=== PATIENT | female | born 1980 | race Caucasian/White ===

== ENCOUNTER → 2017-08-06 | Outpatient (CLI) | payer BC, OTHER ==
[~2017-08-06] MED LIST: ALBU90OI61 INH; AZIT250 PO; BENZ100A PO; HYDACE5 PO; Omeprazole20 M1 PO; PROM6.25SY PO; Prednisone20 MG PO
== END ==
LOC: OLS 17:02
DX: N89.8 Other specified noninflammatory disorders of vagina (principal)
CPT/HCPCS: 87070; 87205

== ENCOUNTER → 2018-10-26 | Outpatient (CLI) | payer BC ==
[2018-10-28 16:06] LABS: HPV 16 Negative (Negative); HPV 18 Negative (Negative); HPV OTHER HR TYPES Negative (Negative)
== END | disposition home or self-care (01) ==
LOC: LAB 17:01 → LAB SHORT 17:01
PROVIDERS: Nurse Practitioner Women's Health
DX: Z12.4 Encounter for screening for malignant neoplasm of cervix (principal); Z91.89 Other specified personal risk factors, not elsewhere classified
CPT/HCPCS: 87624; G0123

== ENCOUNTER → 2018-11-05 | Outpatient (CLI) | payer BC ==
[2018-11-05 09:37] LABS: Source, Urine Clean Catch
[2018-11-05 09:49] LABS: Appearance, Urine Clear (Clear); Bilirubin, Urine Neg (Neg); Blood, Urine Neg (Neg); Color, Urine Yellow (P-Yellow); Glucose Qualitative, Urine Neg (Neg); Ketones, Urine Neg (Neg); Leukocyte Esterase, Urine Neg (Neg); Nitrite, Urine Neg (Neg); Protein, Urine Neg (Neg); Urobilinogen, Urine NORM (Normal)
== END ==
LOC: LAB 09:36 → LAB SHORT 09:36
PROVIDERS: Nurse Practitioner Women's Health
DX: R30.0 Dysuria (principal)
CPT/HCPCS: 81003

== ENCOUNTER → 2018-11-10 | Outpatient (CLI) | payer BC | END | disposition home or self-care (01) | LOC: LAB 15:43 → LAB SHORT 15:43 | DX: J02.9 Acute pharyngitis, unspecified (principal) | CPT/HCPCS: 87070; 87147 ==

== ENCOUNTER → 2020-04-11 | Outpatient (CLI) | payer BC ==
[~2020-04-11] MED LIST changes: +DOCU100 PO; +Estradiol2 MG PO; +IBUP800 PO; +LEVONORGESTREL 1.5 MG PO; +Milk Of Ma400 MG/5 M PO; +PROM25 PO; +Percocet 5-3251 EACH PO; +SENN187 PO; +SIME80CH PO
[2020-04-11 14:16] LABS: Source, Urine Clean Catch
[2020-04-11 15:02] LABS: Bilirubin, Urine Neg (Neg); Blood, Urine Neg (Neg); Glucose Qualitative, Urine Neg (Neg); Ketones, Urine Neg (Neg); Leukocyte Esterase, Urine Neg (Neg); Nitrite, Urine Neg (Neg); Protein, Urine Neg (Neg); Specific Gravity, Urine 1.025 (1.003-1.022); Urobilinogen, Urine NORM (Normal)
[2020-04-11 15:19] LABS: Appearance, Urine Clear (Clear); Color, Urine Yellow (P-Yellow)
== END | disposition home or self-care (01) ==
LOC: LAB SHORT 14:14 → OLS 14:14
PROVIDERS: Nurse Practitioner Women's Health
DX: N32.81 Overactive bladder (principal)
CPT/HCPCS: 81003; 87086

== ENCOUNTER 2020-10-05 07:37 | Day surgery (SDC) | payer BC ==
[~2020-10-05] VITALS: Ht 149.9 cm; Wt 83.4 kg
--- NOTE | 2020-10-05 08:35 | NUR ---
10/05/20 0835 RUKHSANA TSANG PT TO PRE OP, IV TO LEFT HAND. VSS ON ROOM AIR. ENGAGED IN PRE OP TEACHING AND ALL QUESTIONS ASKED AND ANSWERED.
--- NOTE | 2020-10-05 08:52 | NUR ---
10/05/20 0852 Bhupinder Morrow PT INTO OR AT 0840. SX CANCELED D/T NOT HAVING NEEDED EQUIPMENT. PT OUT OF OR AT 0848 & TRANSFERED TO STEP DOWN. PT STATES AN UNDERSTANDING.
== END 2020-10-05 09:00 | disposition home or self-care (01) ==
LOC: ORSCSDS 07:37
DX: M21.612 Bunion of left foot (principal); Z53.9 Procedure and treatment not carried out, unspecified reason
CPT/HCPCS: J0171; J0690; J1100; J2250; J2405; J2704; J3010; J7120

== ENCOUNTER 2020-10-12 11:38 | Day surgery (SDC) | payer BC ==
[~2020-10-12] VITALS: Ht 149.9 cm; Wt 83.2 kg
--- NOTE | 2020-10-12 13:50 | NUR ---
10/12/20 1350 Magnolia Medrano 0.15ML OF EPI 1MG/ML ADDED TO 30ML OF BUPIVICAINE 0.5% FOR A MIXTURE OF BUPIVICAINE 0.5% WITH EPI 1:200,000.
--- NOTE | 2020-10-12 15:34 | NUR ---
10/12/20 1534 Lynnette Larry PT HAVING PAIN IN OPERATIVE LEFT FOOT, 04/14. SITTING IN CHAIR, VITAL SIGNS BP 111/65, OX AT 100% HR 89. PT SITTING IN CHAIR, NOT INVISIBLE PAIN.
== END 2020-10-12 16:35 | disposition home or self-care (01) ==
LOC: ORSCSDS 11:38
PROVIDERS: Podiatrist Foot & Ankle Surgery
PROC: 0QSR04Z Reposition Left Toe Phalanx with Internal Fixation Device, Open Approach (ICD-10-PCS; principal; 2020-10-12 13:15)
PROC: 0SGJ04Z Fusion of Left Tarsal Joint with Internal Fixation Device, Open Approach (ICD-10-PCS; principal; 2020-10-12 13:15)
DX: M21.612 Bunion of left foot (principal); K21.9 Gastro-esophageal reflux disease without esophagitis; E66.01 Morbid (severe) obesity due to excess calories; Z68.37 Body mass index [BMI] 37.0-37.9, adult
CPT/HCPCS: A9270; C1713; C1776; J0171; J0690; J1100; J2250; J2405; J2704; J3010; J7120

== ENCOUNTER → 2021-07-27 | Outpatient (CLI) | payer BC ==
[2021-07-27 11:46] LABS: Hematocrit 46.3 % (33.0-51.0); Hemoglobin 15.4 g/dL (11.5-16.0); Mean Corpuscular HGB 29.8 pg (26.0-34.0); Mean Corpuscular HGB Conc 33.3 g/dL (31.5-36.5); Mean Corpuscular Volume 90 fL (80-100); Mean Platelet Volume 11.4 fL (9.1-12.4); Platelet Count 295 K/mm3 (150-400); RDW Coefficient Variation 12.2 % (11.7-14.2); Red Blood Cell Count 5.16 M/mm3 (3.80-5.20); White Blood Cell Count 4.95 K/mm3 (4.00-11.30)
[2021-07-27 13:34] LABS: Alanine Aminotransfer (ALT/SGP 38 U/L (12-78); Albumin, Blood 3.6 g/dL (3.4-5.0); Albumin/Globulin Ratio 1.1 (0.8-1.8); Alk Phos 178 U/L (50-136); Anion Gap 5 mmol/L (6-16); Aspartate Aminotrans (AST/SGOT 24 U/L (12-37); Bilirubin, Total 0.3 mg/dL (0.1-1.0); Blood Urea Nitrogen 8 mg/dL (8-24); Bun/Creatinine Ratio 12.4 (12.0-20.0); CHOL/HDL RATIO 6.4; CO2, Blood 26 mmol/L (21-32); Calcium, Blood 9.1 mg/dL (8.5-10.1); Chloride, Blood 109 mmol/L (98-108); Cholesterol 211 mg/dL (50-200); Creatinine, Blood 0.65 mg/dL (0.40-1.00); Ferritin, Serum 101 ng/mL (8-252); Globulin, Blood 3.4 g/dL (2.2-4.0); Glomerular Filtration Rate >60 (60-); Glucose, Blood 97 mg/dL (70-99); HDL Cholesterol 33 mg/dL (>39); Low Density Lipoprotein Chol 131 mg/dL (0-110); Potassium, Blood 4.4 mmol/L (3.5-5.5); Sodium, Blood 140 mmol/L (136-145); Triglycerides 233 mg/dL (30-140); Very Low Density Lipoprot Chol 46 mg/dL (6-28)
[2021-07-27 13:51] LABS: Triiodothyronine, Free 2.55 pg/mL (2.18-3.98)
[2021-07-28 08:08] LABS: ESTRADIOL <5.0 pg/mL (.)
[2021-07-29 02:09] LABS: HIV AB/P24 AG SCREEN Non Reactive (Non Reactive)
[2021-07-29 14:09] LABS: FREE TESTOSTERONE(DIRECT) 3.2 pg/mL (0.0-4.2); SEX HORM BINDING GLOB, SERUM 28.6 nmol/L (24.6-122.0); TESTOSTERONE, SERUM <3 ng/dL (8-60)
== END ==
LOC: LAB SHORT 10:39 → LAB FUT 07-19 14:30 → EDSTATUS 07-19 14:30
PROVIDERS: Nurse Practitioner
DX: Z00.00 Encounter for general adult medical examination without abnormal findings (principal); N95.1 Menopausal and female climacteric states; Z13.228 Encounter for screening for other metabolic disorders; Z13.29 Encounter for screening for other suspected endocrine disorder
CPT/HCPCS: 36415; 80053; 80061; 82306; 82533; 82607; 82728; 83001; 83525; 84439; 84443; 84481; 85027; 87389

== ENCOUNTER → 2022-04-07 | Outpatient (CLI) | payer BC | END | disposition home or self-care (01) | LOC: LAB 15:45 → LAB SHORT 15:45 | DX: J02.9 Acute pharyngitis, unspecified (principal) | CPT/HCPCS: 87081 ==

== ENCOUNTER → 2022-07-16 | Outpatient (CLI) | payer BC ==
[2022-07-16 20:48] LABS: Thyroid Stimulating Hormone 2.69 uIU/mL (0.360-4.800)
== END | disposition home or self-care (01) ==
LOC: LAB SHORT 18:01
PROVIDERS: Physician Assistant
DX: R20.2 Paresthesia of skin (principal)
CPT/HCPCS: 82607; 82746; 83036; 84443

== ENCOUNTER 2022-08-11 16:47 | Emergency (ER) | payer BC ==
[~2022-08-11] VITALS: Ht 152.4 cm; Wt 86.2 kg
[2022-08-11 17:16] LABS: BASOPHILS ABSOLUTE AUTO 0.15 K/mm3 (0.00-0.23); BASOPHILS PERCENT AUTO 1 % (0-2); EOSINOPHILS ABSOLUTE AUTO 1.72 K/mm3 (0.00-0.68); EOSINOPHILS PERCENT AUTO 11 % (0-6); Hematocrit 45.8 % (33.0-51.0); Hemoglobin 15.3 g/dL (11.5-16.0); IMMATURE GRAN ABSOLUTE AUTO 0.08 K/mm3 (0.00-0.10); IMMATURE GRAN PERCENT AUTO 1 % (0-1); LYMPHOCYTES ABSOLUTE AUTO 3.08 K/mm3 (0.84-5.20); LYMPHOCYTES PERCENT AUTO 20 % (21-46); MONOCYTES ABSOLUTE AUTO 1.11 K/mm3 (0.16-1.47); MONOCYTES PERCENT AUTO 7 % (4-13); Mean Corpuscular HGB 30.2 pg (26.0-34.0); Mean Corpuscular HGB Conc 33.4 g/dL (31.5-36.5); Mean Corpuscular Volume 90 fL (80-100); Mean Platelet Volume 10.2 fL (9.1-12.4); NEUTROPHILS ABSOLUTE AUTO 8.98 K/mm3 (1.96-9.15); NEUTROPHILS PERCENT AUTO 59 % (41-73); Platelet Count 329 K/mm3 (150-400); RDW Coefficient Variation 13.1 % (11.7-14.2); RDW Standard Deviation 43.2 fL (35.1-46.3); Red Blood Cell Count 5.07 M/mm3 (3.80-5.20); White Blood Cell Count 15.12 K/mm3 (4.00-11.30)
[2022-08-11 17:36] LABS: Albumin, Blood 3.4 g/dL (3.4-5.0); Albumin/Globulin Ratio 0.9 (0.8-1.8); Bilirubin, Total 0.3 mg/dL (0.1-1.0); Bun/Creatinine Ratio 10.4 (12.0-20.0); Calcium, Blood 8.9 mg/dL (8.5-10.1); Creatinine, Blood 0.67 mg/dL (0.40-1.00); Globulin, Blood 3.6 g/dL (2.2-4.0); Potassium, Blood 3.9 mmol/L (3.5-5.5)
[2022-08-11] MEDS ORDERED: DOXY100 PO (19:40)
[2022-08-11] MEDS ORDERED: METPRE4DP PO (19:40)
[2022-08-11 20:32] LABS: Influenza A, PCR NEGATIVE (NEGATIVE); Influenza B, PCR NEGATIVE (NEGATIVE); Resp Syncytial Virus, PCR NEGATIVE (NEGATIVE); SARS-Cov-2 (COVID-19) PCR, MMC NEGATIVE (NEGATIVE)
== END 2022-08-11 20:00 | disposition home or self-care (01) ==
LOC: ER 16:47
PROVIDERS: Emergency Medicine; Physician Assistant
DX: J98.01 Acute bronchospasm (principal); J98.8 Other specified respiratory disorders; Z79.899 Other long term (current) drug therapy
CPT/HCPCS: 0241U; 36415; 71046; 80053; 85025; A9270; J7512

== ENCOUNTER → 2023-10-22 | Outpatient (CLI) | payer OTHER ==
[~2023-10-22] MED LIST changes: +DOXY100 PO; +METPRE4DP PO; +OMEP20ER; +PROGESTERO50 MG/1 ML
[2023-10-27 14:07] LABS: CALPROTECTIN,FECAL 66 ug/g (<=49)
== END | disposition home or self-care (01) ==
LOC: LAB SHORT 18:00 → LAB 18:00
PROVIDERS: Physician Assistant Medical
DX: K59.00 Constipation, unspecified (principal)
CPT/HCPCS: 83993

== ENCOUNTER → 2023-10-28 | Outpatient (CLI) | payer BC, OTHER | END | disposition home or self-care (01) | LOC: LAB SHORT 15:41 → LAB 15:41 | DX: N39.0 Urinary tract infection, site not specified (principal) ==

== ENCOUNTER 2023-11-04 09:47 | Day surgery (SDC) | payer BC, OTHER ==
[~2023-11-04] VITALS: Ht 152.4 cm; Wt 91.1 kg
[~2023-11-04 09:47] MED LIST changes: +Lactated Ringer's 1,000 ML IV ONE; -OMEP20ER; -PROGESTERO50 MG/1 ML
[2023-11-04] MEDS ORDERED: OMEP20ER (10:02)
[2023-11-04] MEDS ORDERED: PROGESTERO50 MG/1 ML (10:03)
[2023-11-04] MEDS ORDERED: Lactated Ringer's 1,000 ML IV ONE (10:31)
[2023-11-04] MEDS ORDERED: propofoL 50 ML IV ONE ×2 (11:43→11:57)
[2023-11-04 13:12] VITALS: BP 115/88
== END 2023-11-04 13:09 | disposition home or self-care (01) ==
LOC: ORSCSDS 09:47
PROVIDERS: Internal Medicine Gastroenterology
PROC: 0DB58ZX Excision of Esophagus, Via Natural or Artificial Opening Endoscopic, Diagnostic (ICD-10-PCS; principal; 2023-11-04 11:00)
PROC: 0DBK8ZX Excision of Ascending Colon, Via Natural or Artificial Opening Endoscopic, Diagnostic (ICD-10-PCS; principal; 2023-11-04 11:00)
PROC: 0DBP8ZX Excision of Rectum, Via Natural or Artificial Opening Endoscopic, Diagnostic (ICD-10-PCS; principal; 2023-11-04 11:00)
DX: K21.00 Gastro-esophageal reflux disease with esophagitis, without bleeding (principal); K59.00 Constipation, unspecified; D12.2 Benign neoplasm of ascending colon; D12.8 Benign neoplasm of rectum; J45.909 Unspecified asthma, uncomplicated; E66.01 Morbid (severe) obesity due to excess calories; Z68.41 Body mass index [BMI] 40.0-44.9, adult; F32.A Depression, unspecified; F41.9 Anxiety disorder, unspecified; Z79.899 Other long term (current) drug therapy
CPT/HCPCS: 88305; J2704; J7120

== ENCOUNTER 2025-02-21 11:08 | Day surgery (SDC) | payer BC, OTHER ==
[~2025-02-21] VITALS: Ht 149.9 cm; Wt 75.9 kg
[~2025-02-21 11:08] MED LIST changes: -Lactated Ringer's 1,000 ML IV ONE; +OMEP20ER; +PROGESTERO50 MG/1 ML
[2025-02-21] MEDS ORDERED: FAMO10 (11:31)
[2025-02-21] MEDS ORDERED: ESTRADIOL1 M1 (11:32)
[2025-02-21] MEDS ORDERED: MOUNJARO2.5 MG/0.5 (11:33)
[2025-02-21 13:12] VITALS: BP 105/72
== END 2025-02-21 13:09 | disposition home or self-care (01) ==
LOC: ORSCSDS 11:08
PROVIDERS: Internal Medicine Gastroenterology
PROC: 0DBM8ZX Excision of Descending Colon, Via Natural or Artificial Opening Endoscopic, Diagnostic (ICD-10-PCS; principal; 2025-02-21 13:00)
PROC: 0DBP8ZX Excision of Rectum, Via Natural or Artificial Opening Endoscopic, Diagnostic (ICD-10-PCS; principal; 2025-02-21 13:00)
PROC: 0DBN8ZX Excision of Sigmoid Colon, Via Natural or Artificial Opening Endoscopic, Diagnostic (ICD-10-PCS; principal; 2025-02-21 13:00)
PROC: 0DBK8ZX Excision of Ascending Colon, Via Natural or Artificial Opening Endoscopic, Diagnostic (ICD-10-PCS; principal; 2025-02-21 13:00)
DX: Z12.11 Encounter for screening for malignant neoplasm of colon (principal); Z86.0100 Personal history of colon polyps, unspecified; D12.2 Benign neoplasm of ascending colon; D12.4 Benign neoplasm of descending colon; K63.5 Polyp of colon; J45.909 Unspecified asthma, uncomplicated; K21.9 Gastro-esophageal reflux disease without esophagitis; E66.9 Obesity, unspecified; Z68.33 Body mass index [BMI] 33.0-33.9, adult; Z79.899 Other long term (current) drug therapy
CPT/HCPCS: 88305; J2704